=== PATIENT | female | born 1960 | race Caucasian/White ===

== ENCOUNTER → 2016-11-17 | Outpatient (CLI) | payer MEDICARE, MEDICAID ==
[~2016-11-17] MED LIST: AMIT75TA2 PO; HYDR-4246 PO; INSU100V12 SQ; INSU100V13 SQ; LEVO100T12 PO; LORA10TA7 PO; METO50TA78 PO; NITR100C PO; OMEP40CA30 PO; PRAV20TA4 PO; RANI300T4 PO; SUMA25TA PO; VENL-69 PO
--- NOTE | 2016-11-18 08:46 | DI ---
Indication: ITS.REASON: N39.0 UTI; R10.9 FLANK PAIN PROCEDURE: CT RENAL W/O CONTRAST: Encounter: Initial Comparison: 08/12/2016 Technique: Axial CT images were performed through the abdomen and pelvis without intravenous contrast. Coronal and sagittal two-dimensional reformats. Findings: The lung bases are clear. The liver again shows mild fatty metamorphosis. The spleen is mildly enlarged measuring 14 cm. The adrenal glands are unremarkable. Pancreas shows mild atrophy. Gallbladder is surgically absent. There is marked atrophy of the right kidney. Left kidney shows no hydronephrosis or nephrolithiasis. Aorta is not enlarged. There is no adenopathy. 6 cm hiatal hernia is noted but stable. No small bowel distention or air-fluid levels. Prominent stool throughout colon. Mesentery is preserved. Urinary bladder shows no intraluminal calcifications. Uterus and ovaries are unremarkable with no free fluid or cystic change. Bony structures show marked interval change of lower dorsal and lower lumbar spine. Impression: 1. No evidence of hydronephrosis or nephrolithiasis. 2. Marked cortical atrophy of right kidney, stable. 3. Stable 6 cm hiatal hernia. 4. Fatty metamorphosis of liver, stable. 5. Mild splenomegaly. The above report concurs with the initial preliminary report provided by Nava at 5:35 PM .
== END ==
LOC: IMA 16:30
PROVIDERS: ATTEND Family Medicine
DX: N39.0 Urinary tract infection, site not specified (principal); N26.1 Atrophy of kidney (terminal); K44.9 Diaphragmatic hernia without obstruction or gangrene; K76.0 Fatty (change of) liver, not elsewhere classified; R16.1 Splenomegaly, not elsewhere classified

== ENCOUNTER → 2016-11-18 | Outpatient (CLI) | payer MEDICARE, MEDICAID ==
--- NOTE | 2016-11-18 13:46 | DI ---
Indication: ITS.REASON: R10.32 left lower quadrant abdominal and pelvic pain PROCEDURE: US PELVIC NON OB W/TRANS VAG: Encounter: Initial Comparison: Negative CT from 11/17/2016 Findings: Transabdominal and transvaginal probes were utilized. The uterus is not enlarged and measures 5.6 cm in length and 2.3 x 3.7 cm in transverse diameter. There is no myometrial mass lesion or endometrial thickening. The right ovary measures 3.1 x 2.0 x 1.6 cm in diameter and demonstrates a small hyperechoic 6 x 7 mm mass, possibly dermoid. The left ovary measures 2.0 x 1.8 x 1.6 cm and demonstrates a complex heterogeneous soft tissue mass measuring 1.4 x 0.7 cm, more likely suggesting hemorrhagic or rupturing cyst. There is no free fluid in cul-de-sac. Impression: 1. Left ovary demonstrates slightly complex heterogeneous 1.4 x 0.7 cm mass most likely related a hemorrhagic or ruptured cyst. 2. Small hyperechoic mass right ovary measuring 6 x 7 mm, possibly dermoid. Follow-up of the two masses would be worthwhile in 3-6 months. .
== END ==
LOC: IMA 12:30
PROVIDERS: ATTEND Family Medicine
DX: N83.8 Other noninflammatory disorders of ovary, fallopian tube and broad ligament (principal); R10.32 Left lower quadrant pain; R10.31 Right lower quadrant pain

== ENCOUNTER 2017-08-27 08:48 | Inpatient (IN) ==
[2017-08-27 09:12] VITALS: BMI 39.3
--- NOTE | 2017-08-27 09:48 | Anesthesia Preoperative Report ---
Anesthesia Preoperative Record - Date and Time Date: 08/27/17 Preoperative Diagnosis: Hysteroscopy/D&C/Lap LSO Proposed Procedure: Lap LSO, D & C Hysteroscopy NPO Since Date: 08/26/17 NPO Since Time: 22:00 Allergies/Adverse Reactions: Allergies Allergy/AdvReac Type Severity Reaction Status Date / Time Penicillins Allergy Intermediate Hives Verified 08/27/17 09:12 tramadol Allergy Intermediate Hives Verified 08/27/17 09:14 - Vital Signs Vital Signs: Temperature 98.7 F 08/27/17 09:12 Pulse Rate 85 08/27/17 09:12 Respiratory Rate 13 08/27/17 09:12 Blood Pressure 170/95 H 08/27/17 09:12 Pulse Oximetry 100 08/27/17 09:12 Height and Weight: Height 4 ft 9 in Weight 82.4 kg Body Mass Index 39.3 - Medications Inpatient Medications: Current Medications Cefazolin Sodium (Kefzol) 2 g IVP PREOP ONE Stop: 08/27/17 14:32 Sodium Chloride (Normal Saline) 1,000 mls @ 50 mls/hr IV .Q20H CANDIS Lidocaine HCl (Xylocaine-Mpf 1% Vial) 1 mg ID O ONE Stop: 08/27/17 14:32 Home Medications: Home Medications Medication Instructions Recorded Confirmed Type ondansetron HCl 4 mg tablet 4 mg PO QID PRN tab 12/28/16 08/27/17 History Azithromycin 1 tab PO DAILY 08/26/17 08/27/17 History Insulin Aspart [NovoLOG] 15 unit SQ ACS 08/26/17 08/27/17 History Insulin Aspart [NovoLOG] 15 units ID ACL 08/26/17 08/27/17 History Loratadine [Claritin] 10 mg PO DAILY 08/26/17 08/27/17 History Pravastatin [Pravachol] 1 tab PO HS 08/26/17 08/27/17 History SUMAtriptan TAB [Imitrex] 25 mg PO PRN PRN 08/26/17 08/27/17 History Albuterol Sulfate [Proventil Hfa 2 puff INH BID 08/27/17 08/27/17 History 90mcg] Insulin Aspart [Novolog] 17 unit SQ ACB 08/27/17 08/27/17 History LORazepam [Ativan] 0.5 mg PO TID PRN 08/27/17 08/27/17 History Is Patient on Beta [place]?: No - Medical History Respiratory: Reports: Bronchitis (CURRENTLY BEING TREATED), Pneumonia DENIES: Asthma, Chronic Obstructive Pulmonary Disease (COPD), Dyspnea, Orthopnea, Pulmonary Embolism, Upper Respiratory Infection, Pulmonary Edema, Sleep Apnea, Tuberculosis, Other Cardiovascular: Reports: Hypertension, High Cholesterol DENIES: Abnormal EKG, Angina, Arrhythmia, Congestive Heart Failure, Coronary Artery Disease, Heart Murmur, Hypotension, Myocardial Infarction, Rheumatic Fever, Valvular Heart Disease, Other Gastrointestional: Reports: Gastroesophageal Reflux Disease, Hiatal Hernia Neuro/Musculoskeletal: Reports: HX.MS.OSAR, Back Problems, Depression Renal/Endocrine: Reports: Diabetes Mellitus Type 2, Thyroid Disease DENIES: Diabetes Mellitus Type 1, Renal Failure, Dialysis, Weight Loss, Weight Gain, Other Other History: DENIES: Anesthesia Reactions, Now, Blood Transfusions, Chemotherapy , Cancer, Hemophilia, Malignant Hyperthermia, Sickle Cell Disease, Other - Surgical History GI Surgery/Treatments: Reports: Appendectomy, Cholecystectomy, Colonoscopy, EGD Surgery/Treatment: REPORT: Other (ureteral transplanation; cysto with dil) Anesthesia Reactions: None Hx Family Anesthesia Reaction: No History of Motion Sickness: No - Social History Smoking Status: Former smoker Hx Chewing Tobacco Use: No Second Hand Exposure: No Substance Use Type: does not use Alcohol Intake Frequency: does not drink - Pertinent Findings Laboratory: CBC and BMP 08/27/17 09:14 08/27/17 09:14 BMP 08/27/17 09:14 Sodium 145 H Potassium 4.2 Chloride 105 Carbon Dioxide 23 BUN 18.0 H Creatinine 1.4 H Glucose 234 H Calcium 10.1 Liver Function 08/27/17 Range/Units 09:14 Total Bilirubin 1.30 (0.20-1.30) MG/DL AST 43 H (14-36) U/L ALT 39 (9-52) U/L Alkaline Phosphatase 170 H (38-126) U/L Albumin 4.8 (3.5-5.0) G/DL Urine 08/27/17 Range/Units 09:14 Urine Color Yellow (YELLOW) Urine Clarity Cloudy Urine pH 6.0 (5.0-8.0) Ur Specific Clune 1.020 (1.015-1.025) Urine Protein 1+ A (NEGATIVE) Urine Glucose (UA) 1+ A (NEGATIVE) EKG: Sinus Rhythm - Physical Exam Respiratory Exam: Present: lungs clear, bilateral breath sounds equal Cardiovascular Exam: Present: regular rate and rhythm, no murmur - Airway Assessment Mallampati Score: I TMD: 3 Fingerbreadths Neck Extension: good Teeth: upper dentures, lower dentures Overall Assessment: no airway concerns - ASA ASA Score: 2 - Plan Anesthesia: General Inhalation Gases - Discussion Discussion: Discussed risks/options/alternatives of anesthesia and questions answered. Patient consents. Nursing pain assessment noted. Present for Discussion: family member Attestation Statement: Prior to the delivery of any anesthetic medication, I examined the patient, developed the plan, obtained the patient's consent and discussed the risk and benefits of the procedure with the patient/guardian. - Additional Information Seen by Anesthesia: Yes
[2017-08-27] MEDS ORDERED: MIDAZOLAM 2mg/2ml INJECTION IVP ONE (09:49)
[2017-08-27] MEDS ORDERED: PROPOFOL 20 ML ONE (10:08)
[2017-08-27] MEDS ORDERED: ROCURONIUM 50 MG/5 ML INJECTION IVP ONE ×2 (10:08→11:32)
[2017-08-27] MEDS ORDERED: FentaNYL 250 MCG/5 ML INJECTION ONE (10:08)
[2017-08-27] MEDS: NS 1,000 ML IV SCH ×4 (10:15→16:40)
[2017-08-27] MEDS ORDERED: SALINE FLUSH 10ml SYRINGE ONE ×2 (11:41→13:06)
[2017-08-27] MEDS ORDERED: EPHEDRINE 50mg/ml INJECTION ONE (11:41)
[2017-08-27] MEDS ORDERED: KETAMINE 500 MG/10 ML INJECTION ONE (12:37)
[2017-08-27] MEDS ORDERED: SEVOFLURANE 250ml LIQUID IH ONE (12:42)
[2017-08-27] MEDS ORDERED: CEFAZOLIN 1 G INJECTION IVP ONE (14:31)
[2017-08-27] MEDS ORDERED: LIDOCAINE 1% (10mg/ml) 2mL INJ PF SDV ID ONE (14:31)
--- NOTE | 2017-08-27 14:40 | OB/GYN Procedure Note ---
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
[2017-08-27] MEDS ORDERED: METOCLOPRAMIDE 10mg/2ml INJECTION IVP PRN (14:42)
[2017-08-27] MEDS ORDERED: ONDANSETRON 4 MG/2 ML INJECTION IVP PRN ×2 (14:42→15:11)
[2017-08-27] MEDS ORDERED: SUGAMMADEX 200mg/2ml INJECTION IVP ONE (14:46)
[2017-08-27] MEDS ORDERED: INSULIN REGULAR, HUMAN 100 UNIT/ML INJECTION IVP ONE ×2 (15:08→16:10)
[2017-08-27] MEDS: MORPHINE SULFATE 10 MG/ML VIAL IVP PRN ×3 (15:17→15:58)
--- NOTE | 2017-08-27 17:06 | Anesthesia Postoperative Note ---
- Date and Time Date: 08/27/17 Time: 17:05 - Status Patient Participated in Evaluation: Patient Participated in Person Vital Signs: Temperature 97.8 F 08/27/17 16:29 Pulse Rate 100 08/27/17 16:40 Respiratory Rate 16 08/27/17 16:23 Blood Pressure 148/87 H 08/27/17 16:40 Pulse Oximetry 97 08/27/17 16:40 Respiratory Function: Airway Patent, Regular Respirations Cardiovascular Function: Regular Pulse EKG: Sinus Rhythm Pain Intensity: 5 Hydration: IV Infusing Complications During Recover: None Apparent - Follow-Up Instructions Instructions: Per Surgeon
[2017-08-27] MEDS: HYDROCODONE/APAP 5mg/325mg TABLET PO PRN (17:09)
[2017-08-27] MEDS: MORPHINE SULFATE 4mg INJECTION IVP PRN ×2 (18:19→20:22)
[2017-08-27] MEDS: SIMETHICONE 80 MG CHEWABLE TABLET PO SCH ×2 (18:26→20:17)
[2017-08-27] MEDS: INSULIN ASPART 100unit/ml INJECTION SQ PRN (20:13)
[2017-08-27] MEDS: OXYCODONE/APAP 7.5 MG/325 MG TABLET PO PRN (22:15)
[2017-08-28] MEDS: OXYCODONE/APAP 7.5 MG/325 MG TABLET PO PRN ×5 (02:44→22:34)
[2017-08-28] MEDS: MORPHINE SULFATE 4mg INJECTION IVP PRN ×2 (04:44→20:04)
[2017-08-28] MEDS: INSULIN ASPART 100unit/ml INJECTION SQ PRN ×4 (06:04→20:05)
[2017-08-28] MEDS: LEVOTHYROXINE 100 MCG TABLET PO SCH (06:05)
[2017-08-28] MEDS: SIMETHICONE 80 MG CHEWABLE TABLET PO SCH ×4 (09:12→21:54)
[2017-08-28] MEDS: DOCUSATE CALCIUM 240 MG CAPSULE PO SCH (09:12)
[2017-08-28] MEDS: NS 1,000 ML IV SCH (13:38)
--- NOTE | 2017-08-28 14:32 | OB/GYN Progress Note ---
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 q&a as best I can re surgery.
[2017-08-28] MEDS: HYDROCODONE/APAP 5mg/325mg TABLET PO PRN (15:39)
[2017-08-28] MEDS: DiphenhydrAMINE 25 MG CAPSULE PO PRN ×3 (15:40→22:34)
[2017-08-28] MEDS ORDERED: LIDOCAINE 1% (10mg/ml) 10mL MDV INFIL ONE (17:32)
[2017-08-28] MEDS ORDERED: LIDOCAINE 1% (10mg/ml) 30ml SDV INJ INJ ONE (17:41)
[2017-08-28] MEDS: CEFOXITIN 2 GM in NS 100 ML IV SCH (21:53)
[2017-08-29] MEDS: CEFOXITIN 2 GM in NS 100 ML IV SCH ×4 (02:51→20:41)
[2017-08-29] MEDS: OXYCODONE/APAP 7.5 MG/325 MG TABLET PO PRN ×5 (02:52→20:37)
[2017-08-29] MEDS: DiphenhydrAMINE 25 MG CAPSULE PO PRN ×3 (05:37→17:56)
[2017-08-29] MEDS: LEVOTHYROXINE 100 MCG TABLET PO SCH (06:07)
[2017-08-29] MEDS: INSULIN ASPART 100unit/ml INJECTION SQ PRN ×3 (06:18→14:05)
[2017-08-29] MEDS: DOCUSATE CALCIUM 240 MG CAPSULE PO SCH (08:22)
[2017-08-29] MEDS: SIMETHICONE 80 MG CHEWABLE TABLET PO SCH ×4 (08:30→20:37)
--- NOTE | 2017-08-29 11:51 | OB/GYN Progress Note ---
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 appetite has been very poor but has improved slightly today incision still together still fighting pain issues but better with Percocet 7.5's can not use motrin on her. goals today are to dc ivf and increase activity and appetite q&a
[2017-08-29] MEDS ORDERED: INSULIN ASPART 100unit/ml INJECTION SQ SCH (17:15)
[2017-08-29] MEDS: NS 1,000 ML IV SCH (17:59)
[2017-08-29] MEDS ORDERED: NS FLUSH BAG 500ml IV PRN (20:53)
[2017-08-29] MEDS ORDERED: RANITIDINE 300 MG TABLET PO SCH (21:00)
[2017-08-29] MEDS ORDERED: INSULIN DETEMIR 100unit/ml INJECTION SQ SCH (21:00)
[2017-08-30] MEDS: OXYCODONE/APAP 7.5 MG/325 MG TABLET PO PRN ×4 (01:13→14:38)
[2017-08-30] MEDS: DiphenhydrAMINE 25 MG CAPSULE PO PRN ×3 (01:18→13:13)
[2017-08-30] MEDS: CEFOXITIN 2 GM in NS 100 ML IV SCH ×2 (04:44→08:45)
[2017-08-30] MEDS: LEVOTHYROXINE 100 MCG TABLET PO SCH (05:42)
[2017-08-30] MEDS ORDERED: OMEPRAZOLE 20 MG CAPSULE PO SCH (06:30)
[2017-08-30] MEDS ORDERED: INSULIN ASPART 100unit/ml INJECTION SQ SCH ×2 (07:45→11:45)
--- NOTE | 2017-08-30 07:51 | Progress Note ---
DATE: 08/28/2017 This is a 57-year-old white female postoperative day #[address] Alvarez. She did a laparoscopy converted to laparotomy yesterday. I was called to the patient's room this afternoon by the nurse because of concern that the incision was more open than it should be. I examined her midline skin incision and it was about 1-1/2 inches wide at the top part. The entire incision was not completely open but it was about 4 inches in length from the superior aspect inferiorly. The operative report had not been typed up yet so I called Dr. Alvarez to find out how she closed it and she did it in layers with the fascia being closed and then a Abelardo's layer and then a subcuticular on the skin so our assessment is that subcuticular stitches came loose and were coming undone. I then talked to Dr. Henderson who is the general surgeon customer acquisition manager this weekend to discuss different closure options. After reviewing her past medical history and my concern that the stitches might continue to come loose then we opted for a bedside sterile closure with lidocaine for anesthesia. We talked about using stapler but my concern was given her previous midline incision that the skin would curl under so we discussed horizontal mattress sutures as well. I talked to the patient and her family and explained the situation. We decided to wait until shortly after her next round of pain medicine and that was given at 6:30pm so at 6:45pm I came bedside and then prepped the area with Betadine and then anesthetized with 1% lidocaine then in a sterile fashion as best I could I took 2-0 Monocryl in three horizontal mattress sutures to make the skin edges everted and bring them back together. Prior to doing that I found the end of the subcuticular stitch and put a knot in it so that it would try to stop it from continuing to come loose. Once I placed the three horizontal mattress sutures then I put rubia between them. The patient tolerated it well. Nurse assisted bedside. Will dress it and continue to monitor. Given the patient's bladder injury we weren't planning on sending her home today anyway. Questions were answered to the patient's satisfaction. JOHN
--- NOTE | 2017-08-30 08:43 | Operative Note ---
DATE OF SURGERY: 08/27/2017 PREOPERATIVE DIAGNOSES 1. Pelvic pain. 2. Thickened endometrium. 3. Complex left ovarian cyst. POSTOPERATIVE DIAGNOSES 1. Pelvic pain. 2. Thickened endometrium. 3. Complex left ovarian cyst. 4. Pelvic adhesive disease. PROCEDURES Diagnostic laparoscopy, lysis of adhesions, laparotomy, repair of unintentional cystotomy, hysteroscopy, D&C and cystoscopy. SURGEON: Brianna Alvarez MD ANESTHESIA: General endotracheal by Shaka Rivera CRNA EBL: 150 cc DESCRIPTION OF PROCEDURE Ms. Awad was brought to the OR and placed on the OR table in a comfortable supine position. She was given general anesthesia and intubated without difficulty. She was then placed in the standard lithotomy position and I performed bimanual exam. The abdomen, perineum and vagina were prepped and draped in the usual sterile fashion and the bladder drained with a sterile in- and-out catheter. The cervix was visualized with a freeway speculum. It was grasped with an Allis clamp. The uterine cavity sounded to a depth of 8 cm. A uterine manipulator was inserted and the other instruments removed. We then regloved. I then infiltrated the supraumbilical region with dilute Marcaine. I made a 5 mm incision, tenting up the abdomen. We inserted the Veress needle and insufflated the abdomen with CO2 until pressures of 12-15 mmHg were achieved. We then removed the Veress needle. Again I tented up the abdomen and inserted a 5 mm trocar through the incision. It was immediately evident that there were very extensive adhesions between the omentum and mesentery and the anterior abdominal wall with some maneuvering and placing the patient in Trendelenburg we were able to see around these but they extended down away from above the umbilicus to the pelvis, therefore I initially placed a 10 mm trocar in the left lower quadrant by transilluminating the area. I infiltrated with Marcaine, made a 12 mm incision and placed a 12 mm trocar through the incision. We very carefully used monopolar scissors and staying close to the abdominal wall carefully bluntly and sharply dissected adhesions away from along the midline. When I was able to get enough visualization we then placed a 5 mm trocar in the right lower quadrant in the same fashion. We moved our camera to this port and then continued to dissect adhesions along the midline and down into the right pelvis. Once we could see, we put the camera back in the supraumbilical port and continued to dissect along. This took quite a bit of time. We were able to see the liver edge was free of lesions. As I descended along the anterior abdominal wall, staying very careful to stay along the anterior abdominal wall. It became clear that there was a cystotomy. We could see the smooth inside cavity of the bladder and clear urine flowing out. At this point as we only had laparoscopic instruments I knew I would need to open therefore while the assistants were setting up for that I broke scrub and went and talked to the patient's family about the situation. They voiced understanding and agreement therefore when I returned to bedside after scrubbing and gowning we made a low midline incision along the patient's prior scar. We were able to use the Bao retractor, placing that I used 3-0 chromic to visualize the cystotomy and made a pursestring suture around that being careful not to intrude into the bladder mucosa. I then imbricated with another pursestring suture of 3-0 chromic. At this point I felt we had dissected quite adequately to help with the patient's pain. We then brought up the left tube and ovary. The ovary appeared essentially normal but was larger in size than the right. I placed a Pean clamp at the left infundibulopelvic ligament, staying very close to the ovary and across the most distal part to include it in this. I then placed free tie of 2-0 Vicryl around this and then cut free the specimen and placed a transfixion suture of 2-0 Vicryl around that. The pedicle was hemostatic, as was our all of our dissection sites. We examined the uterus and the right tube and ovary. All findings were normal at this point and there was no other sign of pathology. It is my belief that the patient's left lower quadrant pain is most likely due to the extensive adhesive disease that she has. We then finally placed a sheet of intercede over the bladder and left lower quadrant. We then removed our retractor and began our closure. Peritoneum was reapproximated with a running nonlocking 2-0 Vicryl. Fascia was reapproximated with running nonlocking 0-Vicryl. Subcutaneous tissues were reapproximated with a running nonlocking 2-0 Vicryl and skin edges were reapproximated with subcuticular style 3-0 undyed Vicryl. We replaced the laparoscope and looked once again and all sites were hemostatic. We then took the patient out of Trendelenburg and removed our operative ports under direct visualization. The one on the right began to bleed at this point. I therefore used the suture placement device to place a simple ligature of 0-Vicryl just superior to that incision and then the bleeding stopped. We then closed all of the remaining wounds with subcuticular style 3-0 undyed Vicryl. All wounds were then dressed with Steri-Strips and sterile dressing and we turned to the next section of our procedure. We then used the 30 degrees hysteroscope, placed into the bladder, and filled it with sterile saline. I could see my area of closure. It was hemostatic. I did not see any other area of intrusion into the bladder and at this point we replaced the patient's Rogers catheter we had placed at the beginning of the laparotomy portion of the procedure. I then removed the uterine manipulator and placed it into the uterine cavity after grasping the cervix with the Allis clamp. The ostia bilaterally were visualized and the entire cavity was free of lesions. I removed the hysteroscope and curetted sharply in all four quadrants, producing a small amount of tissue removed with polyp forceps. We then watched carefully for hemostasis. This was under good control so we removed our retractor and returned Ms. Awad to the supine position. She was then brought out from under anesthesia, extubated and transferred to recovery in stable condition. JOHN
[2017-08-30] MEDS: DOCUSATE CALCIUM 240 MG CAPSULE PO SCH (08:44)
[2017-08-30] MEDS: SIMETHICONE 80 MG CHEWABLE TABLET PO SCH ×2 (09:20→14:03)
[2017-08-30 11:12] VITALS: BP 128/76; PULSE 81; RESP 16; TEMP 97.1
[2017-08-30 16:01] VITALS: O2SAT 98
--- NOTE | 2017-08-31 08:50 | Discharge Summary ---
The patient was admitted on 08/27/2017 and dismissed on 08/30/2017. DISCHARGE DIAGNOSES Pelvic pain. Left complex ovarian mass. Uterine hypertrophy. SUMMARY OF HOSPITAL STAY Ms. Awad was admitted as an outpatient on 06/26/2018 and underwent laparoscopy that was then converted to open surgery and unintentional cystotomy along with a planned hysteroscopy with D&C and a cystoscopy. Postoperatively, we had some problems with pain control and her low midline incision opened. It was closed by secondary intent by Dr. Mac on 06/27/2018. Today, Ms. Castro is tolerating a regular diet. She is ambulating without difficulty and pain control is adequate on Percocet 7.5 mg. She is dismissed with a prescription for these and with an indwelling Rogers catheter. We will remove that in the office in three days. She is already scheduled for that appointment. I reviewed postop instructions and precautions with her. Pathology report is pending at this time. I reviewed how to take care of the Rogers and she is encouraged to call with any questions or concerns prior to that scheduled appointment. JOHN
== END 2017-08-30 17:05 | disposition home or self-care (01) | DRG 744 ==
LOC: SUR 08:48 → NMC.PERIOP 08:52 → SRG 16:25
PROVIDERS: ADMIT Obstetrics & Gynecology; ATTEND Obstetrics & Gynecology